=== PATIENT | female | born 1935 | race Caucasian/White ===

== ENCOUNTER 2018-12-20 04:40 | Emergency (ER) | payer OTHER ==
[~2018-12-20] VITALS: Ht 152.4 cm; Wt 49.4 kg
[2018-12-20 05:29] LABS: ABSOLUTE NEUTROPHILS 3.2 thou/uL (1.4-8.2); BASOPHILS 0.5 % (0.0-2.0); EOSINOPHILS 4.3 % (0.0-3.0); HEMATOCRIT 27.4 % (37.0-47.0); HEMOGLOBIN 8.9 gm/dL (12.0-15.0); LYMPHOCYTES 17.1 % (24.0-44.0); MCH 28.3 pg (26.0-34.0); MCHC 32.4 g/dL (28.0-37.0); MCV 87.3 fL (80.0-100.0); MONOCYTES 7.8 % (1.0-8.0); PLATELET COUNT 305 thou/uL (150-400); POLYS 70.3 % (36.0-66.0); RBC 3.14 mil/uL (4.20-5.00); RDW 17.1 % (10.5-14.5); WBC 4.5 thou/uL (4.0-11.0)
[2018-12-20 05:47] LABS: ALBUMIN 2.8 g/dL (3.4-5.0); ANION GAP 17 mmol/L (7-16); BUN 11 mg/dL (7-18); CALCIUM 6.6 mg/dL (8.5-10.1); CHLORIDE 94 mmol/L (98-107); CO2 28 mmol/L (21-32); CREATININE 1.2 mg/dL (0.6-1.0); GLUCOSE 78 mg/dL (74-106); SGOT 19 U/L (15-37); SGPT 9 U/L (30-65); SODIUM 139 mmol/L (136-145); TOTAL BILIRUBIN 0.7 mg/dL (<0.1-1.0); TOTAL PROTEIN 6.4 g/dL (6.4-8.2); TROPONIN-I <0.06 ng/mL (<0.06)
[2018-12-20 05:49] LABS: MAGNESIUM 0.5 mg/dL (1.8-2.4); POTASSIUM 2.4 mmol/L (3.5-5.1)
[2018-12-20 06:21] LABS: URINE BLOOD NEGATIVE (Negative); URINE CLARITY CLEAR; URINE COLOR YELLOW; URINE GLUCOSE-RANDOM* NEGATIVE (Negative); URINE KETONES 2+ (Negative); URINE LEUKOCYTES-REFLEX NEGATIVE (Negative); URINE NITRITE-REFLEX NEGATIVE (Negative); URINE PROTEIN (DIPSTICK) TRACE (Negative); URINE SPECIFIC GRAVITY >= 1.030 (1.005-1.035)
[2018-12-20] MEDS ORDERED: NORMAL SALINE IV (06:31)
[2018-12-20] MEDS ORDERED: ENOXAPARIN30 MG/0.1 SUBQ (06:31)
[2018-12-20] MEDS ORDERED: TYLENOL325 MG PO (06:32)
[2018-12-20] MEDS ORDERED: BISACODYL10 MG RECTAL (06:33)
[2018-12-20] MEDS ORDERED: FLORINEF ACETA0.1 MG PO (06:34)
[2018-12-20 06:35] LABS: ICTOTEST (BILI CONFIRMATORY) Negative (Negative); URINE BILIRUBIN NEGATIVE (Negative)
[2018-12-20] MEDS ORDERED: LIDOCAINE PAIN1 EACH TOP (06:36)
[2018-12-20] MEDS ORDERED: TRADJENTA5 MG (06:36)
[2018-12-20] MEDS ORDERED: MIRALAX17 GM PO (06:36)
[2018-12-20] MEDS ORDERED: SENNA8.6 MG PO (06:37)
[2018-12-20] MEDS ORDERED: TRAMADOL 50 MG50 MG PO (06:37)
[2018-12-20] MEDS ORDERED: MIDODRINE HCL 55 M1 PO (06:37)
[2018-12-20] MEDS ORDERED: KLOR-CON 1010 MEQ PO (06:38)
[2018-12-20] MEDS ORDERED: CIPRO500 MG PO (06:39)
[2018-12-20] MEDS ORDERED: PROBIOTIC1 EAC1 PO (06:39)
[2018-12-20 07:10] VITALS: BP 88/36
--- NOTE | 2018-12-20 08:59 | EKG ---
[facility] [place] [address] ELECTROCARDIOGRAM REPORT Name: MARTÍN REYES Room #: [facility] SHIRA Cole#: [id number] ������������������ Admission: 12/20/18 ������������������ Attend Phys: Discharge: ������������������ Date of : 37 Report #: [id number] ����������������������������������������������������������������� [id number] THIS REPORT FOR: //name// [facility] ED Test Date: 2018-12-20 Test Time: 06:54:59 Pat Name: MARTÍN REYES Department: Room: 170 Gender: F Lead Engineer: : [id number] Requested By: Etienne Ashley Order Number: [id number] MD: Hilton Eddy Measurements Intervals [place] Rate: 140 P: -61 ND: 182 QRS: -55 QRSD: 104 T: 201 QT: 387 QTc: 591 Interpretive Statements Marked baseline artifact, recommend repeat tracing Probably sinus rhythm Left anterior hemiblock Poor R wave progression No previous ECG available for comparison Electronically Signed On 12-20-2018 8:59:36 CDT by Hilton Eddy [email or web address] ��������������������������������������������� <ELECTRONICALLY SIGNED> ���������������������������������������� By: Hilton Eddy MD, [facility] ��������������������������������������������� 12/20/18 [phone] Hilton Eddy MD, FACC /EPI
== END 2018-12-20 07:54 ==
LOC: ER 04:40 → EROBS 06:13 → ER 06:13
PROVIDERS: Emergency Medicine
DX: D64.9 Anemia, unspecified (principal); R41.82 Altered mental status, unspecified; F03.90 Unspecified dementia, unspecified severity, without behavioral disturbance, psychotic disturbance, mood disturbance, and anxiety; E87.6 Hypokalemia; E83.42 Hypomagnesemia; N18.9 Chronic kidney disease, unspecified; E16.2 Hypoglycemia, unspecified; Z79.899 Other long term (current) drug therapy